=== PATIENT | male | born 1975 | race Two or more races ===

== ENCOUNTER 2021-07-12 09:11 | Emergency (ER) | payer SELFPAY ==
[2021-07-12] MEDS ORDERED: Sodium Chloride 0.9% 2.5 ML Syringe FLUSH PRN (09:25)
[2021-07-12] MEDS ORDERED: Sodium Chloride 0.9% 10 ML Syringe FLUSH PRN (09:25)
[2021-07-12] MEDS ORDERED: Lactated Ringers 1,000 ML IV ONE (09:25)
--- NOTE | 2021-07-12 09:26 | EDM.PDOC ---
ED HPI GENERAL MEDICAL PROBLEM - General Chief Complaint: Cardiovascular Problem Stated Complaint: DIZZY BLURRED VISION Time Seen by Provider: 07/12/21 09:24 Source of Information: Reports: Patient History Limitations: Reports: No Limitations - History of Present Illness INITIAL COMMENTS - FREE TEXT/NARRATIVE: 45-year-old male with no past medical history presents with dizziness. He drove here from [place] on a 30-hour drive from 10 AM to 5 AM on Saturday with no sleep. After he arrived he went to do his laundry and then fell asleep. He woke up at 3 PM and felt dizzy with blurry vision. The dizziness is intermittent and acute onset exacerbated with turning his head left and right. Described as room spinning sensation. He denies fever, chills, headache, focal numbness or weakness, hearing loss, tinnitus, chest pain, abdominal pain, diarrhea. He feels nauseous when symptomatic. He was seen at [facility] on Saturday for his dizziness and no he was prescribed meclizine. He took meclizine when he was symptomatic but felt like it made his symptoms worse. ROS: A 10-point review of systems, other than pertinent positives and negatives as stated per HPI, is otherwise negative Past medical history: No additional pertinent history Past Surgical history: No additional pertinent history Social history: No additional pertinent history Family history: No additional pertinent history PHYSICAL EXAM General: AOx4, GCS = 15, No distress HEENT: dry mucous membrane, fatigable horizontal nystagmus Neck: supple, no meningismus, no Kernig or Brudzinski Cardiac: S1S2 RRR Respiratory: CTAB, no crackles or rales, no wheezing Abdomen: Soft, nontender, no rebound or guarding, nondistended, no pulsatile mass. Back: nontender Musculoskeletal: NVI distally, no deformity Neuro: No focal deficits, CN 2 - 12 WNL. - Related Data Allergies Allergy/AdvReac Type Severity Reaction Status Date / Time No Known Allergies Allergy Verified 07/12/21 09:17 Home Meds: Home Meds Meclizine [Antivert] 25 mg PO TID PRN #15 tab 07/12/21 [Rx] hydroCHLOROthiazide [Hydrochlorothiazide] 25 mg PO DAILY #30 tab 07/12/21 [Rx] Past Medical History - Past Health History Medical/Surgical History: Denies Medical/Surgical History Social & Family History - Family History Family Medical History: No Pertinent Family History - Tobacco Use Tobacco Use Status *Q: Never Tobacco User - Recreational Drug Use Recreational Drug Use: No ED ROS GENERAL - Review of Systems Review Of Systems: See Below (see dictation) ED EXAM, GENERAL - Physical Exam Exam: See Below (see dictation) #1 Interpretation EKG Interpretation Comments: Heart rate = 78 bpm, normal sinus rhythm, normal QRS interval, no STEMI. EKG and rhythm strip interpreted by me at 0923 Course - Vital Signs Last Recorded V/S: Last Vital Signs Temp 97.2 F 07/12/21 09:15 Pulse 72 07/12/21 11:55 Resp 18 07/12/21 09:15 BP 142/93 H 07/12/21 11:55 Pulse Ox 97 07/12/21 11:55 Orthostatic Blood Pressure [ 191/106 Standing] Orthostatic Blood Pressure [ 185/105 Sitting] Orthostatic Blood Pressure [ 178/105 Supine] - Orders/Labs/Meds Orders: Active Orders 24 hr Category Date Time Status Cardiac Monitoring [RC] . DIRECTED Care 07/12/21 09:25 Active Pulse Oximetry [RC] ASDIRECTED Care 07/12/21 09:25 Active Sodium Chloride 0.9% [Saline Flush] Med 07/12/21 09:25 Active 10 ml FLUSH ASDIRECTED PRN Sodium Chloride 0.9% [Saline Flush] Med 07/12/21 09:25 Active 2.5 ml FLUSH ASDIRECTED PRN Saline Lock Insert [OM.PC] Stat Oth 07/12/21 09:25 Ordered Medication Orders Sodium Chloride (Sodium Chloride 0.9% 10 Ml Syringe) 10 ml FLUSH ASDIRECTED PRN PRN Reason: Keep Vein Open Last Admin: 07/12/21 12:43 Dose: 10 ml Documented by: LUCI Sodium Chloride (Sodium Chloride 0.9% 2.5 Ml Syringe) 2.5 ml FLUSH ASDIRECTED PRN PRN Reason: Keep Vein Open Last Admin: 07/12/21 12:42 Dose: 2.5 ml Documented by: LUCI Labs: Laboratory Tests 07/12/21 07/12/21 Range/Units 09:27 09:27 WBC 4.34 (4.0-11.0) K/uL RBC 5.43 (4.50-5.90) M/uL Hgb 16.1 (13.0-17.0) g/dL Hct 45.9 (38.0-50.0) % MCV 84.5 (80.0-98.0) fL MCH 29.7 (27.0-32.0) pg MCHC 35.1 (31.0-37.0) g/dL RDW Std Deviation 37.9 (28.0-62.0) fl RDW Coeff of Fernando 13 (11.0-15.0) % Plt Count 196 (150-400) K/uL MPV 10.90 (7.40-12.00) fL Neut % (Auto) 39.5 L (48.0-80.0) % Lymph % (Auto) 48.8 H (16.0-40.0) % Kenton % (Auto) 9.9 (0.0-15.0) % Eos % (Auto) 1.6 (0.0-7.0) % Baso % (Auto) 0.2 (0.0-1.5) % Neut # (Auto) 1.7 (1.4-5.7) K/uL Lymph # (Auto) 2.1 (0.6-2.4) K/uL Kenton # (Auto) 0.4 (0.0-0.8) K/uL Eos # (Auto) 0.1 (0.0-0.7) K/uL Baso # (Auto) 0.0 (0.0-0.1) K/uL Nucleated RBC % 0.0 /100WBC Nucleated RBCs # 0 K/uL Sodium 140 (136-148) mmol/L Potassium 4.0 (3.5-5.1) mmol/L Chloride 101 (98-107) mmol/L Carbon Dioxide 27.7 (21.0-32.0) mmol/L BUN 10 (7.0-18.0) mg/dL Creatinine 0.9 (0.8-1.3) mg/dL Est Cr Clr Drug Dosing 78.36 mL/min Estimated GFR (MDRD) > 60.0 ml/min Glucose 109 H (74-106) mg/dL Calcium 8.7 (8.5-10.1) mg/dL Phosphorus 3.5 (2.6-4.7) mg/dL Magnesium 2.0 (1.8-2.4) mg/dL Total Bilirubin 0.4 (0.2-1.0) mg/dL AST 28 (15-37) IU/L ALT 65 H (14-63) IU/L Alkaline Phosphatase 97 (46-116) U/L Troponin I < 0.050 (0.000-0.056) ng/mL Total Protein 8.7 H (6.4-8.2) g/dL Albumin 4.3 (3.4-5.0) g/dL Globulin 4.4 H (2.6-4.0) g/dL Albumin/Globulin Ratio 1.0 (0.9-1.6) Meds: Medications Generic Name Dose Route Start Last Admin Trade Name Freq PRN Reason Stop Dose Admin Sodium Chloride 10 ml 07/12/21 09:25 07/12/21 12:43 Sodium Chloride 0.9% 10 Ml Syringe FLUSH 10 ml ASDIRECTED PRN Administration Keep Vein Open Sodium Chloride 2.5 ml 07/12/21 09:25 07/12/21 12:42 Sodium Chloride 0.9% 2.5 Ml Syringe FLUSH 2.5 ml ASDIRECTED PRN Administration Keep Vein Open Discontinued Medications Generic Name Dose Route Start Last Admin Trade Name Freq PRN Reason Stop Dose Admin Diazepam 3 mg 07/12/21 10:34 07/12/21 11:23 Diazepam 10 Mg/2 Ml Syringe IVPUSH 07/12/21 10:35 3 mg ONETIME ONE Administration Lactated Ringer's 1,000 mls @ 999 mls/hr 07/12/21 09:25 07/12/21 09:30 Ringers, Lactated IV 07/12/21 10:25 999 mls/hr .BOLUS ONE Administration Labetalol HCl 10 mg 07/12/21 10:36 07/12/21 11:23 Labetalol 100 Mg/20 Ml Mdv IVPUSH 07/12/21 10:37 Not Given ONETIME ONE Protocol - Re-Assessments/Exams Free Text/Narrative Re-Assessment/Exam: 07/12/21 13:35 After IV Valium in the ER, the patient improved and is currently stable for discharge. I performed a repeat exam and did not appreciate new abnormal findings. Patient exhibits normal vital signs and has a normal gait on road test. His BP improved o 142/93 without labetalol. I advised the patient to return to the ER for reevaluation if symptoms worsened, including fever, worsening pain, or any other worrisome symptoms. I instructed the patient to follow up with their PCP within 2-3 days. MEDICAL DECISION MAKING: I reviewed the patients past medical records, lab and radiographic findings. I discussed the case with the patient. My differential diagnosis included: Peripheral vertigo. Patient's symptoms today are consistent with peripheral vertigo. I do not suspect central etiology, stroke, SAH, meningitis, or any severe infection. Patient's dizziness resolved with ED treatment, and there were no other focal neurological findings or additional complaints. Pt well appearing, ambulatory on own in ED w/o difficulty. I instructed the patient to return immediately for severe, persistent dizziness, vomiting, fever, focal weakness, change in mental status, headache or other concerns. Pt voiced under-standing and questions answered. Departure - Departure Time of Disposition: 13:35 Disposition: Home, Self-Care 01 Condition: Good Clinical Impression: Peripheral vertigo Prescriptions: Meclizine [Antivert] 25 mg PO TID PRN #15 tab PRN Reason: Dizziness hydroCHLOROthiazide [Hydrochlorothiazide] 25 mg PO DAILY #30 tab Instructions: Hypertension, Adult, [id number] Referrals: PCP,None [Primary Care Provider] - Forms: ED Department Discharge Additional Instructions: The need for follow-up, as well as the timing and circumstances, are variable depending upon the specifics of your emergency department visit. If you don't have a primary care physician on staff, we will provide you with a referral. We always advise you to contact your personal physician following an emergency department visit to inform them of the circumstance of the visit and for follow-up with them and/or the need for any referrals to a consulting specialist. The emergency department will also refer you to a specialist when appropriate. This referral assures that you have the opportunity for follow-up care with a specialist. All of these measure are taken in an effort to provide you with optimal care, which includes your follow-up. Under all circumstances we always encourage you to contact your private physician who remains a resource for coordinating your care. When calling for follow-up care, please make the office aware that this follow-up is from your recent emergency room visit. If for any reason you are refused follow-up, please contact the [facility] Emergency Department at and asked to speak to the emergency department charge nurse. If you do not have a primary care doctor, please follow up with the clinics below within 3-5 days. [facility] - Primary Care [address] [place] [address] [place] [address] [facility] [place] - Neurology Professional [facility] [address] [place] [address], [address] [place] [address] Sepsis Event Note (ED) - Evaluation Sepsis Screening Result: No Definite Risk - Focused Exam Vital Signs: Vital Signs Temp Pulse Resp BP Pulse Ox 07/12/21 11:55 72 142/93 H 97 07/12/21 11:17 71 170/101 H 98 07/12/21 09:30 183/111 H 07/12/21 09:15 97.2 F 78 18 192/124 H 97 - My Orders Last 24 Hours: My Active Orders 07/12/21 09:25 Cardiac Monitoring [RC] . DIRECTED Pulse Oximetry [RC] ASDIRECTED Sodium Chloride 0.9% [Saline Flush] 10 ml FLUSH ASDIRECTED PRN Sodium Chloride 0.9% [Saline Flush] 2.5 ml FLUSH ASDIRECTED PRN Saline Lock Insert [OM.PC] Stat - Assessment/Plan Last 24 Hours: My Active Orders 07/12/21 09:25 Cardiac Monitoring [RC] . DIRECTED Pulse Oximetry [RC] ASDIRECTED Sodium Chloride 0.9% [Saline Flush] 10 ml FLUSH ASDIRECTED PRN Sodium Chloride 0.9% [Saline Flush] 2.5 ml FLUSH ASDIRECTED PRN Saline Lock Insert [OM.PC] Stat
--- NOTE | 2021-07-12 09:47 | CR ---
INDICATION: Vertigo. TECHNIQUE: Single portable AP view of the chest. COMPARISON: None. FINDINGS: The lungs are adequately inflated. Linear opacity right lower lung, most likely atelectasis or scarring. No definite acute airspace consolidation. No pneumothorax or significant effusion. Cardiomediastinal silhouette is unremarkable for an AP view. There are no acute osseous findings. IMPRESSION: No acute airspace disease. Probable atelectasis or scarring in the right lower lung. Dictated by Jordan Grande MD @ 07/12/2021 9:46:08 AM Dictated by: Jordan Grande MD @ 07/12/2021 09:46:19 (Electronically Signed)
[2021-07-12 10:08] LABS: BLOOD UREA NITROGEN,BUN 10 mg/dL (7.0-18.0); CARBON DIOXIDE,CO2 27.7 mmol/L (21.0-32.0); CHLORIDE,CL 101 mmol/L (98-107); GLUCOSE RANDOM 109 mg/dL (74-106); SODIUM,NA 140 mmol/L (136-148)
[2021-07-12] MEDS ORDERED: Labetalol 100 MG/20 ML MDV IVPUSH ONE (10:36)
--- NOTE | 2021-07-12 11:26 | CT ---
INDICATION: Vertigo. COMPARISON: None available. TECHNIQUE: Routine noncontrast axial CT images of the head. Sagittal and coronal reformatted series were also generated and reviewed. - Total exam DLP 1,083 mGy-cm. FINDINGS: The carlson/white matter differentiation is preserved throughout. There is no evidence of intracranial mass or hemorrhage. No herniation or hydrocephalus. No abnormal extra-axial fluid collection. Orbital contents are normal. Mild mucoperiosteal thickening in the floor of the right maxillary sinus. Mastoid air cells are clear. Skull and scalp are intact. IMPRESSION: No acute intracranial findings. Dictated by Jordan Grande MD @ 07/12/2021 11:25:04 AM Please note that all CT scans at this facility use dose modulation, iterative reconstruction, and/or weight-based dosing when appropriate to reduce radiation dose to as low as reasonably achievable. Dictated by: Jordan Grande MD @ 07/12/2021 11:25:11 (Electronically Signed)
== END 2021-07-12 13:49 | disposition home or self-care (01) ==
LOC: MW.ED 09:11
DX: H81.399 Other peripheral vertigo, unspecified ear (principal)
CPT/HCPCS: 36415; 70450; 71045; 80053; 83735; 84100; 84484; 85025; 93005; 96374; 99284; J3360; J7120; J3490